=== PATIENT | female | born 1935 | race Hispanic/Latino ===

== ENCOUNTER 2020-11-22 00:49 | Observation (INO) | payer MEDICARE, OTHER ==
--- NOTE | 2020-11-22 01:16 | Emergency Department Report ---
ED Palpitations HPI - General Stated Complaint: AFIB/RVR Time Seen by Provider: 11/22/20 01:06 Source: patient, EMS - History of Present Illness Initial Comments: Patient is 84 years old female with history of atrial fibrillation, hypertension and mitral valve prolapse. Patient brought to the emergency room via EMS from home for evaluation of sudden onset of palpitation. Patient stated that she was working in her yard yesterday and when she went to rest all of a sudden she started having palpitation. Patient stated that she felt her heart racing really fast with bounding pulses in the neck. EMS stated that patient initial pulse was 136 improved to 80 beats per minutes when she was moved to the stretcher. Patient denied any chest pain, shortness of breath, nausea or vomiting. No abdominal pain. Patient also denied any fever or chills. MD Complaint: rapid heart beat, "heart racing", palpitations, irregular heart beat, atrial fibrillation -: Sudden Context: occured during rest Arrythmia History: atrial fibrillation Associated Symptoms: denies other symptoms - Related Data Allergies Allergy/AdvReac Type Severity Reaction Status Date / Time amoxicillin Allergy Mild Rash Verified 11/22/20 01:31 ED Review of Systems ROS: Stated complaint: AFIB/RVR Other details as noted in HPI Comment: All other systems reviewed and negative Constitutional: denies: chills, fever Respiratory: denies: cough, orthopnea, shortness of breath Cardiovascular: palpitations. denies: chest pain, dyspnea on exertion, orthopne a Gastrointestinal: denies: abdominal pain, nausea, vomiting Musculoskeletal: denies: back pain Neurological: denies: headache, weakness, numbness, paresthesias, confusion, abnormal gait ED Physical Exam - General General appearance: alert, in no apparent distress - Head Head exam: Present: atraumatic, normocephalic, normal inspection - Eye Eye exam: Present: normal appearance - ENT ENT exam: Present: normal exam, normal orophraynx, mucous membranes moist - Neck Neck exam: Present: normal inspection, full ROM. Absent: tenderness, meningismus - Respiratory Respiratory exam: Present: normal lung sounds bilaterally - Cardiovascular Cardiovascular Exam: Present: irregular rhythm - GI/Abdominal GI/Abdominal exam: Present: soft, normal bowel sounds. Absent: distended, tenderness, guarding, rebound, rigid, organomegaly, mass, bruit, pulsatile mass, hernia - Extremities Exam Extremities exam: Present: normal inspection, full ROM, normal capillary refill - Back Exam Back exam: Present: normal inspection, full ROM. Absent: CVA tenderness (R), CVA tenderness (L) - Neurological Exam Neurological exam: Present: alert, oriented X3, CN II-XII intact, normal gait, reflexes normal. Absent: motor sensory deficit - Psychiatric Psychiatric exam: Present: normal mood - Skin Skin exam: Present: warm, intact, normal color ED Course Vital Signs 11/22/20 11/22/20 11/22/20 00:49 01:20 02:00 Temperature 98 F Pulse Rate 71 75 61 Respiratory 14 16 17 Rate Blood Pressure 137/55 118/49 O2 Sat by Pulse 100 99 98 Oximetry 11/22/20 03:00 Temperature Pulse Rate 55 L Respiratory 17 Rate Blood Pressure 113/49 O2 Sat by Pulse 98 Oximetry ED Medical Decision Making - Lab Data Result diagrams: 11/22/20 01:28 11/22/20 01:28 - EKG Data -: EKG Interpreted by Co EKG shows normal: sinus rhythm Rate: normal - EKG Data Interpretation: no acute changes - Radiology Data Radiology results: report reviewed - Medical Decision Making Patient is 84 years old female with history of atrial fibrillation, hypertension and mitral valve prolapse. Patient brought to the emergency room via EMS from home for evaluation of sudden onset of palpitation. Patient stated that she was working in her yard yesterday and when she went to rest all of a sudden she started having palpitation. Patient stated that she felt her heart racing really fast with bounding pulses in the neck. EMS stated that patient initial pulse was 136 improved to 80 beats per minutes when she was moved to the stretcher. Patient denied any chest pain, shortness of breath, nausea or vomiting. No abdominal pain. Patient also denied any fever or chills. EKG showed normal sinus rhythm. Labs reviewed and is unremarkable. Chest x-ray is negative for acute finding. Patient most likely have a paroxysmal atrial fibrillation with rapid ventricular response. I discussed the patient with Dr. Coffey, he agreed to admit the patient to medical service for further management. Critical care attestation.: If time is entered above; I have spent that time in minutes in the direct care of this critically ill patient, excluding procedure time. ED Disposition Clinical Impression: Paroxysmal atrial fibrillation with rapid ventricular response Disposition: OP ADMIT IP TO THIS HOSP Is pt being admited?: Yes Condition: Stable
--- NOTE | 2020-11-22 01:42 | XRay Report ---
CHEST 1 VIEW INDICATION: Chest Pain COMPARISON: FINDINGS: SUPPORT DEVICES: None. HEART / MEDIASTINUM: No significant abnormality. LUNGS / PLEURA: No significant pulmonary or pleural abnormality. No pneumothorax. ADDITIONAL FINDINGS: IMPRESSION: 1. No acute cardiopulmonary disease Signer Name: Howie Mayers MD Signed: 11/22/2020 1:37 AM Workstation Name: [id number]
[2020-11-22 02:11] LABS: Basophils # (Auto) 0.1 K/mm3 (0.0-0.1); Eosinophils # (Auto) 0.2 K/mm3 (0.0-0.4); Eosinophils % (Auto) 4.5 % (0.0-4.3); Hemoglobin 12.9 gm/dl (10.1-14.3); Lymphocytes # (Auto) 1.4 K/mm3 (1.2-5.4); Lymphocytes % (Auto) 31.8 % (13.4-35.0); Mean Corpuscular HGB Conc 35 % (30-34); Mean Corpuscular Volume 92 fl (79-97); Monocytes # (Auto) 0.5 K/mm3 (0.0-0.8); Monocytes % (Auto) 10.3 % (0.0-7.3); Platelet Count 132 K/mm3 (140-440); Red Blood Count 4.02 M/mm3 (3.65-5.03); Red Cell Distribution Width 13.4 % (13.2-15.2)
[2020-11-22 02:32] LABS: INR 2.34 (0.87-1.13); Partial Thromboplastin Time 38.8 Sec. (24.2-36.6)
[2020-11-22 03:02] LABS: BUN/Creatinine Ratio 13; Blood Urea Nitrogen 10 mg/dL (7-17); Calcium 9.3 mg/dL (8.4-10.2); Hemolysis Index 7
[2020-11-22 03:08] LABS: Bilirubin,Direct 0.2 mg/dL (0-0.2)
[2020-11-22] MEDS ORDERED: MORPHINE 4 MG/1 ML INJ IV PRN (04:35)
[2020-11-22] MEDS ORDERED: NITROGLYCERIN 0.4 MG TAB SUBL SL PRN (04:35)
[2020-11-22] MEDS ORDERED: ACETAMINOPHEN 325 MG TAB PO PRN ×2 (04:35)
[2020-11-22] MEDS ORDERED: traMADol 50 MG TAB PO PRN (04:35)
[2020-11-22] MEDS ORDERED: ONDANSETRON 4 MG/2 ML INJ IV PRN (04:35)
--- NOTE | 2020-11-22 04:44 | History and Physical Report ---
History of Present Illness Date of examination: 11/22/20 Date of admission: 11/22/20 03:25 Chief complaint: Palpitation A. fib History of present illness: 84 years old female with history of atrial fibrillation, hypertension and mitral valve prolapse was brought to the emergency room for evaluation of sudden onset of palpitation. Patient stated that she was working in her yard yesterday and when she went to rest all of a sudden she started having palpitation. Patient stated that she felt her heart racing really fast with bounding pulses in the neck. EMS stated that patient initial pulse was 136 improved to 80 beats per minutes when she was moved to the stretcher. Patient denied any chest pain, shortness of breath, nausea or vomiting. No abdominal pain. Patient also denied any fever or chills. In the emergency room initial cardiac enzymes negative troponin is 0.010. Past History Past Medical History: atrial fib, hypertension, other (Mitral valve prolapse) Medications and Allergies Allergies Allergy/AdvReac Type Severity Reaction Status Date / Time amoxicillin Allergy Mild Rash Verified 11/22/20 01:31 Home Medications Medication Instructions Recorded Confirmed Last Taken Type Calcium Carb/Vitamin D3/Vit K1 2 tab PO DAILY 11/22/20 11/22/20 Unknown History [Viactiv 650 mg-12.5 Mcg Chew] Levothyroxine Nicu (10 Mcg/ml) 25 mcg PO DAILY 11/22/20 11/22/20 Unknown History [Synthroid Nicu] Levothyroxine [Synthroid] 12.5 mcg PO DAILY 11/22/20 11/22/20 Unknown History Metoprolol Succinate [Toprol Xl] 25 mg PO DAILY 11/22/20 11/22/20 Unknown History Multivitamin/Iron/Folic Acid 2 tab PO DAILY 11/22/20 11/22/20 Unknown History [Centrum Women Tablet] Pantoprazole [Protonix TAB] 20 mg QDAY 11/22/20 11/22/20 Unknown History Rivaroxaban [Xarelto] 15 mg PO QDAY 11/22/20 11/22/20 11/21/20 17:00 History lisinopriL [Zestril TAB] 10 mg PO BID 11/22/20 11/22/20 Unknown History Active Meds: Active Medications Acetaminophen (Acetaminophen 325 Mg Tab) 650 mg PO Q4H PRN PRN Reason: Pain MILD(1-3)/Fever >100.5/GRANADOS Review of Systems Cardiovascular: palpitations Exam - Constitutional Vitals: Temp Pulse Resp BP Pulse Ox 98 F 61 16 120/56 100 11/22/20 00:49 11/22/20 04:00 11/22/20 04:00 11/22/20 04:00 11/22/20 04:00 General appearance: Present: no acute distress, well-nourished - EENT Eyes: Present: PERRL ENT: hearing intact, clear oral mucosa - Neck Neck: Present: supple, normal ROM - Respiratory Respiratory effort: normal Respiratory: bilateral: diminished - Cardiovascular Rhythm: irregularly irregular Heart Sounds: Present: S1 & S2. Absent: rub, click - Extremities Extremities: pulses symmetrical, No edema Peripheral Pulses: within normal limits - Abdominal General gastrointestinal: Present: soft, non-tender, non-distended, normal bowel sounds Female genitourinary: Present: normal - Integumentary Integumentary: Present: clear, warm, dry - Musculoskeletal Musculoskeletal: gait normal, strength equal bilaterally - Psychiatric Psychiatric: appropriate mood/affect, intact judgment & insight - Neurologic Neurologic: CNII-XII intact, moves all extremities HEART Score - HEART Score Troponin: Troponin T < 0.010 ng/mL (0.00-0.029) 11/22/20 01:28 Results - Labs CBC & Chem 7: 11/22/20 05:29 11/22/20 01:28 Labs: Laboratory Last Values WBC 4.4 K/mm3 (4.5-11.0) L 11/22/20 01:28 RBC 4.02 M/mm3 (3.65-5.03) 11/22/20 01:28 Hgb 12.9 gm/dl (10.1-14.3) 11/22/20 01:28 Hct 37.0 % (30.3-42.9) 11/22/20 01:28 MCV 92 fl (79-97) 11/22/20 01:28 MCH 32 pg (28-32) 11/22/20 01:28 MCHC 35 % (30-34) H 11/22/20 01:28 RDW 13.4 % (13.2-15.2) 11/22/20 01:28 Plt Count 132 K/mm3 (140-440) L 11/22/20 01:28 Lymph % (Auto) 31.8 % (13.4-35.0) 11/22/20 01:28 Mobile % (Auto) 10.3 % (0.0-7.3) H 11/22/20 01:28 Eos % (Auto) 4.5 % (0.0-4.3) H 11/22/20 01:28 Baso % (Auto) Production Technologist 11/22/20 01:28 Lymph # (Auto) 1.4 K/mm3 (1.2-5.4) 11/22/20 01:28 Mobile # (Auto) 0.5 K/mm3 (0.0-0.8) 11/22/20 01:28 Eos # (Auto) 0.2 K/mm3 (0.0-0.4) 11/22/20 01:28 Baso # (Auto) 0.1 K/mm3 (0.0-0.1) 11/22/20 01:28 Seg Neutrophils % 51.7 % (40.0-70.0) 11/22/20 01:28 Seg Neutrophils # 2.3 K/mm3 (1.8-7.7) 11/22/20 01:28 PT 28.2 Sec. (12.2-14.9) H 11/22/20 01:28 INR 2.34 (0.87-1.13) H 11/22/20 01:28 APTT 38.8 Sec. (24.2-36.6) H 11/22/20 01:28 Sodium 144 mmol/L (137-145) 11/22/20 01:28 Potassium 3.8 mmol/L (3.6-5.0) 11/22/20 01:28 Chloride 106.9 mmol/L (98-107) 11/22/20 01:28 Carbon Dioxide 25 mmol/L (22-30) 11/22/20 01:28 Anion Gap 16 mmol/L 11/22/20 01:28 BUN 10 mg/dL (7-17) 11/22/20 01:28 Creatinine 0.8 mg/dL (0.6-1.2) 11/22/20 01:28 Estimated GFR > 60 ml/min 11/22/20 01:28 BUN/Creatinine Ratio 13 % 11/22/20 01:28 Glucose 94 mg/dL (65-100) 11/22/20 01:28 Calcium 9.3 mg/dL (8.4-10.2) 11/22/20 01:28 Total Bilirubin 0.80 mg/dL (0.1-1.2) 11/22/20 01:28 Direct Bilirubin 0.2 mg/dL (0-0.2) 11/22/20 01:28 Indirect Bilirubin 0.6 mg/dL 11/22/20 01:28 AST 22 units/L (5-40) 11/22/20 01:28 ALT 13 units/L (7-56) 11/22/20 01:28 Alkaline Phosphatase 58 units/L (35-129) 11/22/20 01:28 Troponin T < 0.010 ng/mL (0.00-0.029) 11/22/20 01:28 NT-Pro-B Natriuret Pep 429.6 pg/mL (0-900) 11/22/20 01:28 Total Protein 5.6 g/dL (6.3-8.2) L 11/22/20 01:28 Albumin 4.0 g/dL (3.9-5) 11/22/20 01:28 Albumin/Globulin Ratio 2.5 % 11/22/20 01:28 - Imaging and Cardiology Chest x-ray: report reviewed Assessment and Plan VTE prophylaxis?: Chemical Plan of care discussed with patient/family: Yes - Patient Problems (1) Paroxysmal atrial fibrillation with rapid ventricular response Current Visit: Yes Status: Acute Plan to address problem: Admit the patient to the medical telemetry. Xarelto 15 mg p.o. daily. Lipitor 40 mg p.o. daily. Metoprolol XL 25 mg p.o. daily. We do the serial cardiac enzyme. We also do echocardiogram. We will also consult cardiology for evaluation (2) Palpitation Current Visit: Yes Status: Acute Plan to address problem: Xarelto 15 mg p.o. daily. Lipitor 40 mg p.o. daily. Metoprolol XL 25 mg p.o. daily. We do the serial cardiac enzyme. We also do echocardiogram. We will also consult cardiology for evaluation (3) Hypertension Current Visit: Yes Status: Acute Plan to address problem: Hydralazine 10 mg IV every 6 hours as needed. Metoprolol XL 25 mg p.o. daily. We will monitor the blood pressure closely. We will continue the home medication (4) Mitral valve prolapse Current Visit: Yes Status: Acute Plan to address problem: Stable we will repeat the echocardiogram. Cardiology consult (5) DVT prophylaxis Current Visit: Yes Status: Acute Plan to address problem: Xarelto 15 mg p.o. daily for DVT prophylaxis. Pepcid 20 mg p.o. twice daily for GI prophylaxis. Patient is a full code
[2020-11-22] MEDS ORDERED: hydrALAZINE 20 MG/1 ML INJ IV PRN (04:48)
[2020-11-22 05:50] LABS: Basophils # (Auto) 0.1 K/mm3 (0.0-0.1); Basophils % (Auto) 1.5 % (0.0-1.8); Eosinophils # (Auto) 0.1 K/mm3 (0.0-0.4); Eosinophils % (Auto) 2.7 % (0.0-4.3); Hematocrit 36.5 % (30.3-42.9); Hemoglobin 12.7 gm/dl (10.1-14.3); Lymphocytes # (Auto) 1.3 K/mm3 (1.2-5.4); Lymphocytes % (Auto) 28.2 % (13.4-35.0); Mean Corpuscular HGB Conc 35 % (30-34); Mean Corpuscular Volume 92 fl (79-97); Monocytes # (Auto) 0.4 K/mm3 (0.0-0.8); Monocytes % (Auto) 7.9 % (0.0-7.3); Platelet Count 129 K/mm3 (140-440); Red Blood Count 3.97 M/mm3 (3.65-5.03); Red Cell Distribution Width 13.6 % (13.2-15.2)
[2020-11-22] MEDS ORDERED: HEPARIN 5,000 UNIT/1 ML VIAL SUB-Q SCH (06:00)
[2020-11-22] MEDS ORDERED: MORPHINE 2 MG/1 ML INJ IV PRN (06:00)
[2020-11-22] MEDS ORDERED: LEVOTHYROXINE 25 MCG TAB PO SCH (06:00)
[2020-11-22 06:05] LABS: Chol/HDL Ratio 1.94 %
[2020-11-22 06:07] LABS: Blood Urea Nitrogen 9 mg/dL (7-17); Calcium 8.8 mg/dL (8.4-10.2); Hemolysis Index 2
[2020-11-22 06:10] LABS: BUN/Creatinine Ratio 13
[2020-11-22] MEDS ORDERED: METOPROLOL SUCCINATE XL 25 MG TAB PO SCH (08:00)
[2020-11-22] MEDS ORDERED: PANTOPRAZOLE 40 MG TAB PO SCH (10:00)
[2020-11-22] MEDS ORDERED: FAMOTIDINE 20 MG TAB PO SCH (10:00)
[2020-11-22] MEDS ORDERED: METOPROLOL TARTRATE 25 MG TAB PO SCH (10:00)
[2020-11-22] MEDS ORDERED: RIVAROXABAN 15 MG TAB PO SCH (10:00)
[2020-11-22] MEDS ORDERED: LISINOPRIL 10 MG TAB PO SCH (10:00)
[2020-11-22] MEDS ORDERED: MULTIVITAMINS ,THERAPEUTIC TAB PO SCH (10:00)
--- NOTE | 2020-11-22 10:17 | Electrocardiograph Report ---
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
--- NOTE | 2020-11-22 10:17 | Electrocardiograph Report ---
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
[2020-11-22] MEDS: IPRATROPIUM/ALBUTEROL SULFATE 3 ML AMPUL.NEB IH SCH ×2 (10:49→14:44)
--- NOTE | 2020-11-22 12:07 | Electrocardiograph Report ---
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
--- NOTE | 2020-11-22 13:12 | Consultation ---
History of Present Illness Consult date: 11/22/20 Requesting physician: SHARRI MOELLER Consult reason: tachycardia (Palpitations) History of present illness: This patient is a 84-year-old female with a significant history of A. fib, hypertension, mitral valve prolapse. She is previously unknown to our practice, patient is followed by Dr. Hays with [facility]. She presents to [facility] ER via EMS after episode of heart palpit ations. Patient states she was working in the yard x2 days and experienced racing heart rate with bounding pulse, heart rate 136 per EMS. Patient denies any chest pain shortness of breath weakness dizziness, abdominal pain, N/V/T, recent illness or known exposures. Patient is a good historian and is regularly followed by cardiology. She reports negative stress test approximately 3 months ago, echocardiogram 3 to 4 months ago with unknown EF. Patient has significant history of atrial fibrillation for which she takes Xarelto 15 mg daily, metoprolol XL 25 mg/day. Per patient: Medication digoxin was recently discontinued by primary cardiology after presyncope and hypotension. Patient is currently asymptomatic and requesting to go home. Patient will follow-up with [facility] within 1 to 2 weeks of discharge. Records of cardiac diagnostic testing have been requested from [facility] and [facility]. Past History Past Medical History: atrial fib, hypertension, other (Mitral valve prolapse) Medications and Allergies Allergies Allergy/AdvReac Type Severity Reaction Status Date / Time amoxicillin Allergy Mild Rash Verified 11/22/20 01:31 Home Medications Medication Instructions Recorded Confirmed Last Taken Type Aspirin [Aspirin BABY CHEW TAB] 81 mg PO QDAY #100 tab.chew 11/22/20 Unknown Rx Calcium Carb/Vitamin D3/Vit K1 2 tab PO DAILY 11/22/20 11/22/20 Unknown History [Viactiv 650 mg-12.5 Mcg Chew] Ipratropium/Albuterol Sulfate 1 ampul IH Q6HRT ampul.neb 11/22/20 Unknown Rx [DUONEB *Not for PRN Use*] Levothyroxine Nicu (10 Mcg/ml) 25 mcg PO DAILY 11/22/20 11/22/20 Unknown History [Synthroid 10 mcg/ml] Levothyroxine [Synthroid] 12.5 mcg PO DAILY 11/22/20 11/22/20 Unknown History Metoprolol Succinate [Toprol Xl] 25 mg PO DAILY #30 11/22/20 Unknown Rx Multivitamin/Iron/Folic Acid 2 tab PO DAILY 11/22/20 11/22/20 Unknown History [Centrum Women Tablet] Pantoprazole [Protonix TAB] 20 mg QDAY 11/22/20 11/22/20 Unknown History Rivaroxaban [Xarelto] 15 mg PO QDAY tablet 11/22/20 Unknown Rx lisinopriL [Zestril TAB] 10 mg PO BID 11/22/20 11/22/20 Unknown History lisinopriL [Zestril TAB] 10 mg PO BID tablet 11/22/20 Unknown Rx Active Meds: Active Medications Acetaminophen (Acetaminophen 325 Mg Tab) 650 mg PO Q4H PRN PRN Reason: Pain MILD(1-3)/Fever >100.5/GRANADOS Albuterol/Ipratropium (Ipratropium/Albuterol Sulfate 3 Ml Ampul.Neb) 1 ampul IH Q6HRT [facility] Last Admin: 11/22/20 10:49 Dose: Not Given Documented by: Aspirin (Aspirin 81 Mg Tab Chew) 81 mg PO QDAY [facility] Atorvastatin Calcium (Atorvastatin 40 Mg Tab) 40 mg PO QHS [facility] Famotidine (Famotidine 20 Mg Tab) 20 mg PO BID [facility] Last Admin: 11/22/20 10:46 Dose: 20 mg Documented by: Hydralazine HCl (Hydralazine 20 Mg/1 Ml Inj) 10 mg IV Q6H PRN PRN Reason: htn Levothyroxine Sodium (Levothyroxine 25 Mcg Tab) 12.5 mcg PO DAILY@0600 [facility] Last Admin: 11/22/20 06:35 Dose: 12.5 mcg Documented by: Lisinopril (Lisinopril 10 Mg Tab) 10 mg PO BID [facility] Last Admin: 11/22/20 10:48 Dose: 10 mg Documented by: Metoprolol Succinate (Metoprolol Succinate Xl 25 Mg Tab) 25 mg PO DAILY@0800 [facility] Last Admin: 11/22/20 10:32 Dose: Not Given Documented by: Morphine Sulfate (Morphine 2 Mg/1 Ml Inj) 2 mg IV Q5MIN PRN PRN Reason: Chest Pain Multivitamins (Multivitamins ,Therapeutic Tab) 2 each PO DAILY [facility] Last Admin: 11/22/20 10:45 Dose: 2 each Documented by: Nitroglycerin (Nitroglycerin 0.4 Mg Tab Subl) 0.4 mg SL Q5M PRN PRN Reason: Chest Pain Ondansetron HCl (Ondansetron 4 Mg/2 Ml Inj) 4 mg IV Q8H PRN PRN Reason: Nausea And Vomiting Rivaroxaban (Rivaroxaban 15 Mg Tab) 15 mg PO QDAY [facility] Sodium Chloride (Sodium Chloride 0.9% 10 Ml Flush Syringe) 10 ml IV BID [facility] Last Admin: 11/22/20 10:47 Dose: 10 ml Documented by: Sodium Chloride (Sodium Chloride 0.9% 10 Ml Flush Syringe) 10 ml IV PRN PRN PRN Reason: LINE FLUSH Tramadol HCl (Tramadol 50 Mg Tab) 50 mg PO Q6H PRN PRN Reason: Pain, Moderate (4-6) Review of Systems Constitutional: no weight loss, no weight gain, no fever, no chills, no sweats Ears, nose, mouth and throat: no ear pain, no ear discharge, no nose pain, no nasal congestion, no nasal discharge Cardiovascular: palpitations, rapid/irregular heart beat, no chest pain, no orthopnea, no edema, no syncope, no lightheadedness, no shortness of breath, no dyspnea on exertion, no paroxysmal nocturnal dyspnea, no claudication, no high b lood pressure, no leg edema Respiratory: no cough, no cough with sputum, no hemoptysis, no shortness of breath, no dyspnea on exertion Gastrointestinal: no abdominal pain, no nausea, no vomiting, no diarrhea Genitourinary Female: no flank pain Musculoskeletal: no neck stiffness, no neck pain, no shooting arm pain, no arm numbness/tingling, no low back pain, no shooting leg pain Integumentary: no rash, no pruritis, no redness, no sores, no wounds Neurological: no head injury, no paralysis, no weakness, no parathesias, no numbness, no tingling, no seizures, no syncope Psychiatric: no anxiety Endocrine: no cold intolerance, no heat intolerance Hematologic/Lymphatic: no easy bruising, no easy bleeding Allergic/Immunologic: no urticaria Physical Examination Last Vital Signs Temp 97.6 F 11/22/20 07:45 Pulse 53 L 11/22/20 10:32 Resp 18 11/22/20 07:45 BP 121/43 11/22/20 10:48 Pulse Ox 98 11/22/20 07:45 General appearance: no acute distress HEENT: Positive: PERRL, Normocephaly, Mucus Membranes Moist Neck: Positive: neck supple, trachea midline Cardiac: Positive: Reg Rate and Rhythm Lungs: Positive: Normal Exam, Normal Breath Sounds Neuro: Positive: Grossly Intact Abdomen: Positive: Unremarkable, Soft Skin: Negative: Rash, Wound Extremities: Present: upper extr. pulses, lower extr. pulses. Absent: edema Results 11/22/20 05:29 11/22/20 05:29 Cardiac Enzymes 11/22/20 Range/Units 01: AST 22 (5-40) units/L Coagulation 11/22/20 Range/Units 01:28 PT 28.2 H (12.2-14.9) Sec. INR 2.34 H (0.87-1.13) APTT 38.8 H (24.2-36.6) Sec. Lipids 11/22/20 Range/Units 05:29 Triglycerides 38 (2-149) mg/dL Cholesterol 136 (50-199) mg/dL HDL Cholesterol 70 H (40-59) mg/dL Cholesterol/HDL Ratio 1.94 % CBC 11/22/20 11/22/20 Range/Units 01:28 05:29 WBC 4.4 L 4.6 (4.5-11.0) K/mm3 RBC 4.02 3.97 (3.65-5.03) M/mm3 Hgb 12.9 12.7 (10.1-14.3) gm/dl Hct 37.0 36.5 (30.3-42.9) % Plt Count 132 L 129 L (140-440) K/mm3 Lymph # (Auto) 1.4 1.3 (1.2-5.4) K/mm3 [place] # (Auto) 0.5 0.4 (0.0-0.8) K/mm3 Eos # (Auto) 0.2 0.1 (0.0-0.4) K/mm3 Baso # (Auto) 0.1 0.1 (0.0-0.1) K/mm3 Comprehensive Metabolic Panel 11/22/20 11/22/20 11/22/20 Range/Units 01:28 01:28 05:29 Sodium 144 144 (137-145) mmol/L Potassium 3.8 3.9 (3.6-5.0) mmol/L Chloride 106.9 108.3 H (98-107) mmol/L Carbon Dioxide 25 27 (22-30) mmol/L BUN 10 9 (7-17) mg/dL Creatinine 0.8 0.7 (0.6-1.2) mg/dL Glucose 94 86 (65-100) mg/dL Calcium 9.3 8.8 (8.4-10.2) mg/dL Direct Bilirubin 0.2 (0-0.2) mg/dL Indirect Bilirubin 0.6 mg/dL AST 22 (5-40) units/L ALT 13 (7-56) units/L Alkaline Phosphatase 58 (35-129) units/L Total Protein 5.6 L (6.3-8.2) g/dL Albumin 4.0 (3.9-5) g/dL - Imaging and Cardiology Echo: report reviewed (Echocardiogram reviewed (0088): LVEF is 55 to 60%. LV SF is normal. Normal left ventricular wall thickness. Normal LV segmental wall motion. Mild diastolic dysfunction is present (impaired relaxation pattern). RVSF is normal. No valvular abnormalities. RVSP is 25 mmHg.) EKG: report reviewed, image reviewed EKG interpretations - Telemetry EKG Rhythm: Sinus Rhythm - EKG Sinus rhythms and dysrhythmias: sinus rhythm Assessment and Plan Telemetry reviewed: Sinus rhythm 63. No events #Paroxysmal atrial fibrillation with RVR * Patient is appropriately anticoagulated on Xarelto 15 mg p.o. daily * Rate control medication is currently being managed by primary cardiology, recently digoxin was discontinued for hypotension. Patient is currently on metoprolol XL 25 mg p.o. daily. * Review of telemetry shows no further episodes of atrial fibrillation and rate is appropriately controlled. Continue to monitor on telemetry. * Exercise MPI stress test (03/2020) negative for reversible ischemia. EF is 50 to 70%. No wall motion abnormalities. Left ventricular function is normal. #History of mitral valve prolapse * Echocardiogram reviewed (12/11): LVEF is 55 to 60%. LV SF is normal. Normal left ventricular wall thickness. Normal LV segmental wall motion. Mild diastolic dysfunction is present (impaired relaxation pattern). RVSF is normal. No valvular abnormalities. RVSP is 25 mmHg. #Hypertension * Currently normotensive. Continue current antihypertensive regimen of metoprolol XL 25 mg p.o. daily, lisinopril 10 mg p.o. daily. #DVT prophylaxis * Anticoagulated on Xarelto Patient is currently stable cardiac status. Records have been requested from [facility] in [facility]. Recommend continued telemetry monitoring overnight. Anticipate discharge tomorrow. Will follow Patient should follow-up with Dr. Hays, cardiology with [facility] within 1 to 2 weeks of discharge This patient was seen in conjunction with Dr Gus Craig who agrees with this assessment and plan of care. - Patient Problems (1) DVT prophylaxis Current Visit: Yes Status: Acute (2) Hypertension Current Visit: Yes Status: Acute (3) Mitral valve prolapse Current Visit: Yes Status: Chronic (4) Palpitation Current Visit: Yes Status: Acute (5) Paroxysmal atrial fibrillation with rapid ventricular response Current Visit: Yes Status: Chronic
--- NOTE | 2020-11-22 14:49 | Discharge Summary ---
Providers - Providers Date of Admission: 11/22/20 03:25 Date of discharge: 11/22/20 Attending physician: DAKOTA WATTS 11/22/20 Consult to Cardiac Rehabilitation [CONS] Routine Reason For Exam: Phase I 11/22/20 04:36 Consult to Cardiology [CONS] Routine Consulting Provider: DAYANARA COUCH Reason For Exam: Palpitation Primary care physician: VAISHALI HART Hospitalization Condition: Stable Hospital course: 84 years old female with history of atrial fibrillation, hypertension and mitral valve prolapse was brought to the emergency room for evaluation of sudden onset of palpitation. Patient stated that she was working in her yard yesterday and when she went to rest all of a sudden she started having palpitation. Patient stated that she felt her heart racing really fast with bounding pulses in the neck. EMS stated that patient initial pulse was 136 improved to 80 beats per minutes when she was moved to the stretcher. Patient denied any chest pain, shortness of breath, nausea or vomiting. No abdominal pain. Patient also denied any fever or chills. In the emergency room initial cardiac enzymes negative troponin is 0.010. - Patient Problems (1) Paroxysmal atrial fibrillation with rapid ventricular response Current Visit: Yes Status: Acute Plan to address problem: Resolved Sinus rhythm with heart rate of 67 (2) Palpitation Current Visit: Yes Status: Acute Plan to address problem: Resolved (3) Hypertension Current Visit: Yes Status: Acute Plan to address problem: Controlled (4) Mitral valve prolapse Current Visit: Yes Status: Acute Plan to address problem: Follow-up with cardiology as outpatient (5) DVT prophylaxis Current Visit: Yes Status: Acute Plan to address problem: Xarelto 15 mg p.o. daily for DVT prophylaxis. Pepcid 20 mg p.o. twice daily for GI prophylaxis. Patient is a full code Disposition: DC-01 TO HOME OR SELFCARE Final Discharge Diagnosis (Prints w/discharge instructions): Atrial fibrillation with rapid ventricular response. Hypertension. Palpitations Time spent for discharge: 32 minutes - Discharge Diagnoses (1) Paroxysmal atrial fibrillation with rapid ventricular response Status: Chronic (2) Hypertension Status: Acute (3) Mitral valve prolapse Status: Chronic (4) DVT prophylaxis Status: Acute Core Measure Documentation - Palliative Care Palliative Care/ Comfort Measures: Not Applicable - Core Measures Any of the following diagnoses?: none Exam - Constitutional Vitals: Temp Pulse Resp BP Pulse Ox 97.6 F 53 L 18 121/43 98 11/22/20 07:45 11/22/20 10:32 11/22/20 07:45 11/22/20 10:48 11/22/20 07:45 General appearance: Present: no acute distress, well-nourished - EENT Eyes: Present: PERRL ENT: hearing intact, clear oral mucosa - Neck Neck: Present: supple, normal ROM - Respiratory Respiratory effort: normal Respiratory: bilateral: CTA - Cardiovascular Heart rate: 67 Rhythm: regular Heart Sounds: Present: S1 & S2. Absent: rub, click - Extremities Extremities: pulses symmetrical, No edema Peripheral Pulses: within normal limits - Abdominal General gastrointestinal: Present: soft, non-tender, non-distended, normal bowel sounds Female genitourinary: Present: normal - Integumentary Integumentary: Present: clear, warm, dry - Musculoskeletal Musculoskeletal: gait normal, strength equal bilaterally - Psychiatric Psychiatric: appropriate mood/affect, intact judgment & insight - Neurologic Neurologic: CNII-XII intact, moves all extremities Plan Activity: no restrictions Diet: low salt Follow up with: VAISHALI HART MD [Primary Care Provider] - 3-5 Days MARK ELLIS MD [Staff Physician] - 7 Days
[2020-11-22 16:34] VITALS: BP 120/46
[2020-11-23] MEDS ORDERED: ASPIRIN 81 MG TAB CHEW PO SCH (10:00)
== END 2020-11-22 17:00 | disposition home or self-care (01) ==
LOC: ED 00:49 → 4A 03:25
PROVIDERS: ADMIT Hospitalist; ATTEND Internal Medicine
DX: I48.0 Paroxysmal atrial fibrillation (principal); I34.1 Nonrheumatic mitral (valve) prolapse; I10 Essential (primary) hypertension; R00.2 Palpitations; Z79.82 Long term (current) use of aspirin
CPT/HCPCS: 36415; 71045; 80048; 80061; 80076; 83880; 84484; 85025; 85610; 85730; 93005; 93306; 99285; G0378